=== PATIENT | male | born 1960 | race African-American/Black ===

== ENCOUNTER 2021-04-27 06:28 | Emergency (ER) | payer OTHER ==
[2021-04-27 06:51] VITALS: TEMP 98.5; BMI 37.9
[2021-04-27] MEDS ORDERED: ACETAMINOPHEN 500 MG TABLET (FP) PO ONE (07:43)
[2021-04-27] MEDS ORDERED: ACETAMINOPHEN 325 MG TABLET (FP) ONE (08:20)
[2021-04-27 10:49] VITALS: BP 146/84; PULSE 95
== END 2021-04-27 10:49 | disposition home or self-care (01) ==
LOC: JER 06:28
DX: R51.9 Headache, unspecified (principal); I10 Essential (primary) hypertension
CPT/HCPCS: 70450-TC; 93005; 93010; 99284-25

== ENCOUNTER 2023-06-22 17:31 | Emergency (ER) | payer OTHER ==
[2023-06-22 17:38] VITALS: BP 137/74; PULSE 92; RESP 18; TEMP 98.3; BMI 26.1
[2023-06-22 18:54] LABS: BASO % 0.7 % (0-2.0); EOS % 3.8 % (0-4.5); HEMATOCRIT 38.5 % (35.4-49); HEMOGLOBIN 13.4 GM/dL (11.7-16.9); LYMPH % 29.8 % (8-40); MCH 32.5 pg (25.7-33.7); MCHC 34.8 g/dl (32.0-35.9); MEAN CELL VOLUME 93.3 fl (80-96); MEAN PLT VOLUME 7.3 fl (7.5-11.1); MONO % 15.2 % (3.8-10.2); NEUT % 50.5 % (42.8-82.8); PLATELET COUNT 342 10^3/uL (134-434); RBC 4.12 M/mm3 (4.00-5.60); RDW 13.5 % (11.9-15.9); WHITE BLOOD COUNT 7.3 K/mm3 (4.0-10.0)
[2023-06-22 19:01] LABS: INR 1.78 (0.83-1.09); PROTHROMBIN TIME (PATIENT) 20.5 SEC (9.7-13.0)
[2023-06-22 19:04] LABS: ACTIVATED PTT 40.9 SECONDS (25.2-36.5)
[2023-06-22 19:12] LABS: POTASSIUM 3.9 mmol/L (3.5-5.1)
[2023-06-22 19:14] LABS: ALBUMIN 3.3 g/dl (3.4-5.0); CALCIUM 9.6 mg/dL (8.5-10.1)
[2023-06-22 19:15] LABS: BLOOD UREA NITROGEN 14.1 mg/dL (7-18)
[2023-06-22 19:18] LABS: CREATININE 1.4 mg/dL (0.55-1.3)
[2023-06-22 19:19] LABS: TOT PROT 7.4 g/dl (6.4-8.2)
[2023-06-22 20:21] LABS: ERYTHROCYTE SEDIMENTATION RATE 38 mm/hr (0-20)
[2023-06-22] MEDS ORDERED: oxyCODONE HCL 5 MG TABLET PO ONE (22:19)
== END 2023-06-22 23:30 | disposition short-term general hospital (02) ==
LOC: JER 17:31
DX: M54.2 Cervicalgia (principal); R22.1 Localized swelling, mass and lump, neck
CPT/HCPCS: 36415; 70491-TC; 70498-TC; 80053; 84443; 85025; 85610; 85651; 85730; 86140; 86850; 86900; 86901; 99285-25; Q9967